=== PATIENT | male | born 1960 | race Caucasian/White ===

== ENCOUNTER 2018-10-28 20:02 | Emergency (ER) | payer OTHER ==
[2018-10-28] MEDS: HYDROCODONE/APAP (10/325) TAB PO (22:49)
== END 2018-10-28 22:57 | disposition home or self-care (01) ==
LOC: FTE 20:02
DX: L03.811 Cellulitis of head [any part, except face] (principal); L08.9 Local infection of the skin and subcutaneous tissue, unspecified; E11.9 Type 2 diabetes mellitus without complications
CPT/HCPCS: 99283; Z7610